=== PATIENT | female | born 1965 ===

== ENCOUNTER 2020-05-03 08:15 | Day surgery (SDC) | payer BC ==
[2020-05-03] MEDS ORDERED: Acetaminophen 500 MG TAB ONE (08:44)
[2020-05-03] MEDS ORDERED: diphenhydrAMINE 50 MG/ML VIAL IVP SCH (08:45)
[2020-05-03] MEDS ORDERED: Acetaminophen 500 MG TAB PO SCH (08:45)
[2020-05-03] MEDS ORDERED: BAMLANIVIMAB 700 MG in Sodium Chloride 0.9% 250 ML 250 ML IVPB SCH (08:45)
[2020-05-03] MEDS ORDERED: diphenhydrAMINE 50 MG/ML VIAL ONE (08:46)
== END 2020-05-03 11:15 | disposition home or self-care (01) ==
LOC: CSHSDC/OP 08:15
PROVIDERS: ATTEND Family Medicine
DX: U07.1 COVID-19 (principal)
CPT/HCPCS: J1200